=== PATIENT | male | born 2000 | race Caucasian/White ===

== ENCOUNTER → 2021-02-01 | Outpatient (CLI) | payer BC, OTHER ==
[~2021-02-01] VITALS: Ht 182.9 cm; Wt 86.4 kg
[~2021-02-01] MED LIST: CATHETER FLUSH 10 ML SYR IV PRN; GADOBUTROL 7.5 MMOL/7.5 ML (GADAVIST) VIAL IV ONE; IOHEXOL 300 MG/ML 50 ML (OMNIPAQUE 300) VIAL IV ONE
--- NOTE | 2021-02-01 14:21 | Diagnostic Imaging Report ---
INDICATION: Right elbow pain and injury. DETAILS OF THE PROCEDURE: The patient was brought to the procedure room and placed on the table in the prone position. The elbow was placed in 90 degree flexion with the thumb up. The lateral right elbow was prepped and draped in the usual sterile fashion. A small amount of 1% lidocaine was utilized for local anesthesia. A 22-gauge needle was advanced into the elbow from a lateral approach into the radiocapitellar space. Approximately 10 cc of iodinated contrast, normal saline, and gadolinium was injected under fluoroscopic observation. The needle was withdrawn and hemostasis was obtained. 32 seconds of fluoroscopic time was utilized. The patient tolerated the procedure well and was sent to MRI in satisfactory condition. IMPRESSION: Successful right elbow injection of gadolinium contrast solution using fluoroscopy. Dictated by: Dictated on workstation # [id number]
--- NOTE | 2021-02-01 17:34 | Diagnostic Imaging Report ---
PROCEDURE: MRI upper extremity any joint with contrast right. TECHNIQUE: Multiplanar, multisequence intra-articular contrast-enhanced MRI of the right upper extremity was accomplished. INDICATION: Right elbow pain, baseball injury COMPARISON: None FINDINGS: There is motion artifact on multiple sequences. No acute fracture is seen in the right elbow. Alignment is normal. The joint is well distended with contrast. The ulnar collateral ligament appears intact at the ulna although there may be mild low-grade partial tearing more proximally (image 8 series 7). The radial collateral ligamentous complex appears intact. The origins of the common flexor and common extensor tendons appear intact. The biceps and brachialis tendons appear intact. The triceps tendon is intact. No focal muscular atrophy is seen. No fluid collections or masses are seen. The ulnar nerve appears normal in course and caliber at the cubital tunnel. IMPRESSION: 1. Questionable low-grade partial tearing at the proximal ulnar collateral ligament. Dictated by: Dictated on workstation # [id number]
== END ==
LOC: RAD 13:30
PROVIDERS: ATTEND Orthopaedic Surgery
DX: S53.441A Ulnar collateral ligament sprain of right elbow, initial encounter (principal); Y93.64 Activity, baseball
CPT/HCPCS: 24220; 73085; 73222